=== PATIENT | female | born 1965 | race Caucasian/White ===

== ENCOUNTER 2016-06-29 05:45 | Day surgery (SDC) | payer OTHER ==
[~2016-06-29] VITALS: Ht 154.9 cm; Wt 85.7 kg
[~2016-06-29 05:45] MED LIST: ABILIFY5 MG PO; ADDERALL30 MG PO; AMLODIPINE BESYL5 MG PO; ATARAX,VISTARIL50 MG PO; BACTRIM,SEPT1 TABLET PO; BUSPIRONE HCL10 MG PO; CIPROFLOXACIN500 M1 PO; CYMBALTA60 MG PO; DAILY VALUE1 EACH PO; DAILY VITAMIN1 EAC8 PO; DESYREL100 MG PO; DILAUDID4 MG PO; GABAPENTIN300 MG PO; GABAPENTIN600 MG PO; HYDROCHLOROTH12.5 M3 PO; HYDROCODON-ACE1 EAC5 PO; KEFLEX500 MG PO; LIDOCAINE HCL20 ML MM; MOBIC7.5 MG PO; MS CONTIN,ORAMO15 M1 PO; MS CONTIN,ORAMO30 MG PO; NABUMETONE750 M1 PO; PEN-VEE K,VEET500 MG PO; PERCOCET 5/31 TABLET PO; PREDNISONE20 MG PO; SERTRALINE HCL100 MG PO; SERTRALINE HCL50 MG PO; TRAMADOL HCL50 MG PO; TRAZODONE HCL100 MG PO; VALIUM5 MG PO; VICODIN,LORT1 TABLET PO; VYVANSE30 MG PO; VYVANSE50 MG PO; WELLBUTRIN XL300 MG PO; ZESTORETIC 10-1 EAC1 PO
[2016-06-29 06:44] VITALS: BP 119/88
[2016-06-29 13:25] VITALS: BP 112/66
[2016-06-29 15:07] LABS: HEMATOCRIT 39.9 % (36.0-46.0); MCV 93.2 FL (83-99)
[2016-06-29 15:20] VITALS: BP 104/57
[2016-06-29 20:47] VITALS: BP 100/63
[2016-06-30 00:39] VITALS: BP 121/73
[2016-06-30 03:13] VITALS: BP 113/63
[2016-06-30 07:38] VITALS: BP 109/60
[2016-06-30] MEDS ORDERED: ENDOCET 5-3251 EACH PO (07:39)
[2016-06-30 09:07] LABS: HEMATOCRIT 38.1 % (36.0-46.0); MCH 30.6 PG (29.0-34.0); MCHC 32.8 G/DL (30.0-36.0); MCV 93.4 FL (83-99); MEAN PLAT.VOLUME 9.5 uM^3 (9.5-12.4); PLATELET COUNT 313 K/uL (156-360); RBC DIS.WIDTH-CV 12.7 % (11.8-14.6); RBC DIS.WIDTH-SD 44.1 % (39-53); RED BLOOD COUNT 4.08 M/uL (3.80-5.20); WHITE BLOOD COUNT 12.1 K/uL (4.1-10.2)
[2016-06-30 09:31] LABS: ANION GAP 3 MEQ/L (2-14); CHLORIDE 104 MEQ/L (99-109); GFR ESTIMATE (CALCULATED) > 59 mL/min/; GLUCOSE 93 mg/dL (70-99); POTASSIUM 4.2 MEQ/L (3.7-5.4); SAMPLE HEMOLYSIS CHECK 0; SAMPLE ICTERIC CHECK 0; SAMPLE LIPEMIA CHECK 0; SODIUM 140 MEQ/L (136-147); UREA NITROGEN (BUN) 9 mg/dL (9-23)
== END 2016-06-30 10:38 | disposition home or self-care (01) ==
LOC: SDC → 2SOUTH 08:35 → SDC 09:02 → 2EASTP 13:21
PROVIDERS: Obstetrics & Gynecology
DX: N81.4 Uterovaginal prolapse, unspecified (principal); D25.9 Leiomyoma of uterus, unspecified; I10 Essential (primary) hypertension; M79.7 Fibromyalgia; K59.00 Constipation, unspecified; Z79.899 Other long term (current) drug therapy; F17.210 Nicotine dependence, cigarettes, uncomplicated
CPT/HCPCS: 80048; 85014; 85018; 85027; 88307; 94799; G0378; J0330; J0690; J1100; J1170; J1885; J1940; J2250; J2270; J2405; J2710; J3010; J7120

== ENCOUNTER 2017-03-13 23:57 | Emergency (ER) | payer OTHER ==
[~2017-03-13] VITALS: Ht 157.5 cm; Wt 75.4 kg
[~2017-03-13 23:57] MED LIST changes: +ENDOCET 5-3251 EACH PO
[2017-03-14 01:08] LABS: HEMATOCRIT 42.2 % (36.0-46.0); HEMOGLOBIN 14.5 G/DL (11.9-15.5); MCH 30.9 PG (29.0-34.0); MCHC 34.4 G/DL (30.0-36.0); PLATELET COUNT 342 K/uL (156-360); RBC DIS.WIDTH-CV 12.8 % (11.8-14.6); RBC DIS.WIDTH-SD 42.2 % (39-53); RED BLOOD COUNT 4.69 M/uL (3.80-5.20)
[2017-03-14 01:22] LABS: CHLORIDE 100 mEq/L (99-109); POTASSIUM 3.6 mEq/L (3.7-5.4); SODIUM 136 mEq/L (136-147)
[2017-03-14 01:23] LABS: GLUCOSE 98 mg/dL (70-99)
[2017-03-14 01:27] LABS: CREATININE 0.8 mg/dL (0.6-1.3); GFR ESTIMATE (CALCULATED) > 59 mL/min/
[2017-03-14 01:28] LABS: UREA NITROGEN (BUN) 13 mg/dL (9-23)
[2017-03-14 01:30] LABS: CREATINE KINASE 131 IU/L (1-294)
[2017-03-14 01:53] LABS: ALBUMIN 4.3 g/dL (3.2-4.8)
[2017-03-14 01:56] LABS: TOTAL PROTEIN 7.1 g/dL (6.4-8.3)
[2017-03-14 01:57] LABS: TOTAL BILIRUBIN 0.3 mg/dL (0.0-1.0)
[2017-03-14 01:59] LABS: ALKALINE PHOSPHATASE 125 IU/L (3-129)
[2017-03-14 02:01] LABS: AST (GOT) 38 IU/L (2-34); DIRECT BILIRUBIN 0.1 mg/dL (0.0-0.3)
[2017-03-14 02:02] LABS: ALT (GPT) 38 IU/L (3-49)
[2017-03-14 03:28] VITALS: BP 152/86
== END 2017-03-14 03:30 | disposition home or self-care (01) ==
LOC: EME 23:57
PROVIDERS: Physician Assistant
DX: E86.0 Dehydration (principal); E87.6 Hypokalemia; F17.200 Nicotine dependence, unspecified, uncomplicated; I10 Essential (primary) hypertension; Z87.440 Personal history of urinary (tract) infections; F41.9 Anxiety disorder, unspecified; F32.9 Major depressive disorder, single episode, unspecified; G89.29 Other chronic pain; M54.9 Dorsalgia, unspecified; M25.559 Pain in unspecified hip
CPT/HCPCS: 80048; 80076; 82550; 85027; 99281; 99284; J7030

== ENCOUNTER 2017-08-07 00:22 | Emergency (ER) | payer OTHER ==
[~2017-08-07] VITALS: Ht 157.5 cm; Wt 73.6 kg
[2017-08-07 02:19] VITALS: BP 148/90
== END 2017-08-07 02:19 | disposition home or self-care (01) ==
LOC: EME 00:22
DX: S91.342A Puncture wound with foreign body, left foot, initial encounter (principal); W45.8XXA Other foreign body or object entering through skin, initial encounter; Y93.01 Activity, walking, marching and hiking
CPT/HCPCS: 99281; 99283